=== PATIENT | female | born 1940 | race Asian ===

== ENCOUNTER 2019-05-29 09:03 | Emergency (ER) | payer OTHER, MEDICAID ==
[~2019-05-29] VITALS: Ht 167.6 cm; Wt 68.0 kg
[2019-05-29 10:19] LABS: Basophils # (auto) 0.1 uL; Eosinophils # (auto) 0.2 uL; Hematocrit 45.5 % (36.0-46.0); Lymphocytes # (auto) 1.4 uL; Lymphocytes % (auto) 8.6 % (10.0-50.0); Mean Corpuscular Hemoglobin 26.9 pg (28.0-32.0); Nucleated Red Blood Cells % 0.1 %
[2019-05-29 10:21] LABS: Basophils % (auto) 0.7 % (0.0-2.0); Hemoglobin 14.5 g/dL (12.2-16.2); Mean Corpuscular Hgb Conc. 31.9 g/dL (32.0-36.0); Mean Corpuscular Volume 84.3 fL (80.0-100.0); Monocytes # (auto) 1.1 uL; Monocytes % (auto) 6.7 % (0.0-12.0); Neutrophils # (auto) 13.2 uL; Platelet Count (auto) 282 10^3/uL (140-450); Red Blood Cells 5.39 10^6/uL (4.0-5.20); Red Cell Distribution Width 14.5 % (11.8-14.3); White Blood Cell 15.9 10^3/uL (4.4-10.8)
[2019-05-29 10:26] LABS: Albumin 3.3 g/dL (3.4-5.0); Magnesium 2.4 mg/dL (1.6-2.6); Potassium 3.8 mmol/L (3.5-5.1)
[2019-05-29 10:30] LABS: BUN/Creatinine Ratio 18.9; Bilirubin, Total 0.8 mg/dL (0.2-1.0); Total Protein 7.9 g/dL (6.4-8.2)
[2019-05-29] MEDS: SODIUM CHLORIDE 0.9% 1,000 ML IV ONE (11:01)
[2019-05-29 11:09] LABS: Urine Bacteria FEW /hpf (None Seen); Urine Blood Negative /uL (Negative); Urine Specific Gravity 1.009 (1.001-1.035); Urine WBC 21 /hpf (0 - 5); Urine WBC Clumps PRESENT /hpf (None Seen)
[2019-05-29 12:00] LABS: INR 1.01 (0.9-1.15); Partial Thromboplastin Time 28.4 sec (23.64-32.05)
[2019-05-29] MEDS: InsuLIN REG 1unit/0.01ml Soln (100units/ml) IV ONE ×3 (13:30→17:14)
[2019-05-29] MEDS: cefTRIAXone 1GM/50ML D5W 50 ML IV ONE (14:01)
[2019-05-29 20:51] VITALS: BP 123/52
== END 2019-05-29 19:05 | disposition short-term general hospital (02) ==
LOC: EDBD 09:03 → ER 09:03
DX: E11.65 Type 2 diabetes mellitus with hyperglycemia (principal); E11.21 Type 2 diabetes mellitus with diabetic nephropathy; E86.1 Hypovolemia; N39.0 Urinary tract infection, site not specified; E44.1 Mild protein-calorie malnutrition; Z68.24 Body mass index [BMI] 24.0-24.9, adult; I48.91 Unspecified atrial fibrillation; Z98.61 Coronary angioplasty status; Z85.038 Personal history of other malignant neoplasm of large intestine
CPT/HCPCS: 36415; 71045; 80053; 81001; 82962; 83036; 83605; 83735; 83880; 84443; 84484; 85025; 85610; 85730; 93005; 96361; 96365; 96366; 96375; 96376; 99285; J0696; J1815